=== PATIENT | female | born 1995 | race Caucasian/White ===

== ENCOUNTER 2018-05-11 11:05 | Emergency (ER) | payer OTHER ==
[~2018-05-11] VITALS: Ht 170.2 cm; Wt 59.1 kg
[2018-05-11] MEDS ORDERED: birthcontrol PO (11:12)
[2018-05-11 12:04] VITALS: BP 110/76
== END 2018-05-11 12:31 | disposition home or self-care (01) ==
LOC: EMS 11:07
DX: S61.012A Laceration without foreign body of left thumb without damage to nail, initial encounter (principal); W45.8XXA Other foreign body or object entering through skin, initial encounter; Y93.89 Activity, other specified; Y92.89 Other specified places as the place of occurrence of the external cause; Y99.8 Other external cause status
CPT/HCPCS: 12001; 99283